=== PATIENT | male | born 1950 | race Caucasian/White ===

== ENCOUNTER 2024-02-13 07:58 | Day surgery (SDC) | payer MEDICARE, OTHER ==
[2024-02-13] MEDS ORDERED: Sodium Chloride 0.9% 10 ML Syringe FLUSH PRN (08:00)
[2024-02-13] MEDS: Lactated Ringers 1,000 ML IV SCH (08:25)
[2024-02-13] MEDS ORDERED: Propofol 200 MG/20 ML SDV ONE (09:00)
[2024-02-13] MEDS ORDERED: Midazolam 1 MG/ML 2 ML SDV ONE (09:00)
== END 2024-02-13 10:54 | disposition home or self-care (01) ==
LOC: KA.SDS 07:58
PROVIDERS: ATTEND Family Medicine
DX: Z12.11 Encounter for screening for malignant neoplasm of colon (principal); D12.6 Benign neoplasm of colon, unspecified; K57.30 Diverticulosis of large intestine without perforation or abscess without bleeding; K64.8 Other hemorrhoids; I12.9 Hypertensive chronic kidney disease with stage 1 through stage 4 chronic kidney disease, or unspecified chronic kidney disease; N18.31 Chronic kidney disease, stage 3a; E78.2 Mixed hyperlipidemia; E66.9 Obesity, unspecified; Z87.891 Personal history of nicotine dependence
CPT/HCPCS: 00811; 99100; J2250; J2704; J3490; J7120